=== PATIENT | male | born 1955 ===

== ENCOUNTER → 2017-02-26 | Outpatient (REF) ==
--- NOTE | 2017-02-26 16:20 | REP ---
LEFT KNEE, FIVE VIEWS: HISTORY: Degenerative joint disease. There is no acute fracture or dislocation. There is narrowing of the joint spaces. Osteophytes are present on the femur, tibial and patella. IMPRESSION: Degenerative change as described above. Signed by Gualberto Valentine MD 02/26/2017 04:23 P
== END ==
LOC: M SMT 14:41
PROVIDERS: ATTEND Internal Medicine
DX: Z02.71 Encounter for disability determination (principal); M17.12 Unilateral primary osteoarthritis, left knee; M25.762 Osteophyte, left knee